=== PATIENT | male | born 1950 | race Caucasian/White ===

== ENCOUNTER → 2021-08-30 10:26 | Outpatient (BNVA) | payer MEDICARE, SELFPAY | PROVIDERS: Family Provider Family Medicine; Visit Provider Nurse Practitioner Family | DX: E11.9 Type 2 diabetes mellitus without complications (principal); Z85.46 Personal history of malignant neoplasm of prostate; I10 Essential (primary) hypertension | CPT/HCPCS: 80053; 80061; 83036; 84153; 84443 ==

== ENCOUNTER 2021-09-28 17:39 | Emergency (ER) | payer MEDICARE, SELFPAY ==
[2021-09-28] VITALS (8 sets, daily range): BP systolic 139–207; BP diastolic 74–94; PULSE 64–91; RESP 15–18; TEMP 36.6–36.9; O2SAT 94–98; BMI 28.8
--- NOTE | 2021-09-28 18:01 | ECG_ITS ---
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 Measurements Intervals [place] Rate: 86 P: 64 ME: 190 QRS: 2 QRSD: 172 T: 139 QT: 440 QTc: 527 Interpretive Statements SINUS RHYTHM WITH OCCASIONAL VENTRICULAR PREMATURE COMPLEXES LEFT BUNDLE BRANCH BLOCK [120+ ms QRS DURATION, 80+ ms Q/S IN V1/V2, 85+ ms R IN I/aVL/V5/V6] Compared to ECG 03/04/2018 16:53:49 Ventricular premature complex(es) now present Electronically Signed On 09-29-2021 15:53:11 CDT by Dipak Corona M.D. [id number]
--- NOTE | 2021-09-28 18:04 | ED_ITS ---
HPI - Abdominal Pain General: Chief Complaint: Abdominal Pain Stated Complaint: ABD PAIN Time Seen by Provider: 09/28/21 17:47 Source: patient Mode of arrival: EMS Limitations: no limitations History of Present Illness: This patient comes to emergency department via EMS from his home. Patient states that approximately 5 AM today he is had nausea and distention and felt like he could not eat. He states he has had a very small bowel movement earlier today but not normal. He states has been urinating normally. He denies any known exposure to infectious disease. He states he was at [place] at [facility] there and was evaluated today and states they did not do anything for me . He does admit that they did a full evaluation to include imaging laboratories etc. and he states they told him to use mag citrate and Dulcolax. He has known history of coronary artery dise ase and had coronary artery bypass several years ago. He denies any ongoing chest pain. He states no one else is ill in his home. He did have COVID-19 in July but is recovered from that condition. He has not had any abdominal surgeries but did have a TUR for prostatic cancer. MD elicited complaint: abdominal pain Quality: fullness Associated Symptoms: Denies chills, diarrhea, dysuria, fever(s), hematochezia, melena, syncope and vomiting Review of Systems Const: Denies: fever(s), chills or body aches Eyes: Denies: change in vision ENMT: Denies: throat pain or odynophagia Card: Denies: chest pain, palpitations or syncope Resp: Denies: dyspnea, productive cough or non-productive cough GI: Denies: vomiting, dysphagia, diarrhea, hematochezia or melena : Denies: flank pain, difficulty urinating or dysuria Musc: Denies: neck pain, back pain, extremity pain or extremity swelling Skin/Breast: Denies: rash, pruritus or erythema Neuro: Denies: headache(s), numbness in extremities, weakness in extremities, vertigo, confusion or Slurred speech present Psych: Denies: anxiety or depression Endo: Denies: polyuria or polydipsia All/Imm: Denies: urticaria PFSH ED PFSH: Medical History History of prostate cancer Hypertension Family History Father Stroke Brother Stroke Sister Stroke Other Diabetes Social History Smoking and tobacco status: never smoked Physical Exam Narrative: EXAM NARRATIVE: Patient makes good eye contact. Speech is goal-directed. Appears to be in no acute distress Const: COMMON NORMALS: no acute distress and patient oriented x3 GENERAL APPEARANCE: comfortable NUTRITIONAL APPEARANCE: obese ORIENTATION/CONSCIOUSNESS: Yes awake HENMT: COMMON NORMALS: normocephalic, atraumatic, Normal nasal mucous membranes and turbinates present, moist oral mucous membranes and oropharynx normal HEAD & SCALP: normocephalic and atraumatic FACE & SINUS: normal facial exam NOSE: Normal nasal mucous membranes and turbinates present Eye: COMMON NORMALS: Equal, round and reactive pupils present, EOMs intact bilaterally and no scleral icterus PUPIL: Yes Equal, round and reactive pupils present Neck/C-Spine: COMMON NORMALS: full ROM, no lymphadenopathy, supple, no JVD and No carotid bruits Chest: COMMONS NORMALS: normal inspection of the chest and normal palpation of entire chest wall Resp: COMMON NORMALS: normal respiratory effort, No retractions, No use of accessory muscles and clear to auscultation bilaterally AUSCULTATION: clear to auscultation bilaterally Cardio: COMMON NORMALS: no JVD, regular rate, No murmurs present (Cardio) and Peripheral pulses 2+ throughout RATE: regular rate PERIPHERAL PULSES: Tamar pheral pulses 2+ throughout GI: INSPECTION: Yes abdominal distension and No Fluid wave present AUSCULTATION: Yes normoactive bowel sounds PALPATION: No Guarding due to palpation present (GI), No Rigid due to palpation and No Pulsatile mass present PERCUSSION: no fluid wave and tympanic to percussion : COMMON NORMALS: Yes no CVA tenderness BLADDER/KIDNEY EXAM: Yes no CVA tenderness Back/Pelvis: COMMON NORMALS: no CVA tenderness, thoracic and lumbar spine normal to inspection, no thoracic nor lumbar tenderness and thoraco-lumbar ROM normal Extremity: COMMON NORMALS: normal to inspection, full ROM, capillary refill normal, no calf tenderness and no pedal edema Neuro: COMMON NORMALS: patient oriented x3, moves all extremities and no sensory deficits noted Course ED course: Records from from [place] are reviewed. All studies there unremarkable. Notable is the patient's initial troponin is elevated. We will go ahead and give the patient aspirin and follow this biomarker. His initial EKGs are nonischemic. Reevaluation(s): Reevaluation #1: Patient blood pressure is improved after nitroglycerin however he is still having some upper abdominal discomfort. Rectal examination was performed and rectal vault was clear of any stool masses etc. We will provide him additional analgesics and get a gallbladder ultrasound established there is no biliary tract disease although his CT scan was quiet on this area. We will also await his second troponin as I am a bit concerned he may be occult ACS given his known CAD. Reevaluation #2: diamond powder technician gave me informal report that gallbladder looked grossly normal without any obvious stones or wall thickening although she did not get great vie ws of his common bile duct or neck of the gallbladder. Time: 21:30 Consultations: Consultation #1: Discussed history and current findings with Dr Basilio who agreed to place in obs for further eval Time: 22:05 Vital Signs: Vital signs: Vital Signs Temperature 98.4 F 09/28/21 21:44 Pulse Rate 64 09/28/21 21:44 Respiratory Rate 16 09/28/21 21:44 Blood Pressure 139/74 09/28/21 21:44 Pulse Oximetry 95 09/28/21 21:44 MDM - Abdominal Pain Medical Decision Making Patient with known coronary artery disease history with up proximately 18+ hours of pain. Previous evaluation at another emergency department did not find anything worrisome other than retained stool the patient proceeded to make his way to our emergency department. Our evaluation here this evening reveals an unchanged EKG over serial evaluations with a stable left bundle branch block pattern. He does have troponin elevations but the second troponin elevation is not significantly different however I think because of his history certainly further observation and repeat troponins are indicated. Again his CT scan from [place] was negative for any obvious serious pathology at this time. Our gallbladder ultrasound at this time does not show any obvious occult biliary tract disease. The patient is amenable to placing in observation for further evaluation. Medical Records I reviewed the patient's medical records. Reviewed records from [facility]. Evaluation at that facility was fairly unremarkable. Other than a slightly elevated glucose and elevated BUN/creatinine ratio laboratories were unremarkable. CT of abdomen and pelvis revealed some increased stool burden but no intra-abdominal pathologic pathology including no evidence of great vessel disease etc. Lab Data I reviewed the patient's lab results. : 09/28/21 18:05 09/28/21 18:05 Labs/Radiology: Radiology Impressions Chest X-Ray 09/28/21 19:47 IMPRESSION: Mild atelectasis at the bilateral lung bases. No consolidative pulmonary infiltrate noted. Gallbladder Ultrasound 09/28/21 20:26 IMPRESSION: 1. The study is limited by patient body habitus. 2. No abnormality demonstrated. Laboratory Results WBC 7.1 10^3/uL (4.0-10.0) 09/28/21 18:05 RBC 4.80 10^6/uL (4.1-5.3) 09/28/21 18:05 Hgb 13.5 g/dL (11.7-16.6) 09/28/21 18:05 Hct 40.9 % (42.0-52.0) L 09/28/21 18:05 MCV 85.2 fl (80-94) 09/28/21 18:05 MCH 28.1 pg (28.0-34.0) 09/28/21 18:05 MCHC 33.0 g/dL (30.0-36.0) 09/28/21 18:05 RDW 13.9 % (12.1-15.1) 09/28/21 18:05 Plt Count 216 10^3/cmm (130-400) 09/28/21 18:05 MPV 9.8 fL (7.4-10.4) 09/28/21 18:05 Neut % (Auto) 74.1 % 09/28/21 18:05 Lymph % (Auto) 18.0 % 09/28/21 18:05 Bibb % (Auto) 6.4 % 09/28/21 18:05 Eos % (Auto) 1.0 % 09/28/21 18:05 Baso % (Auto) 0.4 % 09/28/21 18:05 Neut # (Auto) 5.23 10^3/uL (1.8-7.7) 09/28/21 18:05 Lymph # (Auto) 1.3 10^3/uL (0.8-4.8) 09/28/21 18:05 Bibb # (Auto) 0.5 10^3/uL (0.2-0.9) 09/28/21 18:05 Eos # (Auto) 0.1 10^3/uL (0.0-0.8) 09/28/21 18:05 Baso # (Auto) 0.0 10^3/uL (0.0-0.1) 09/28/21 18:05 Nucleated RBC % (auto) 0 % 09/28/21 18:05 Nucleated RBCs # 0.0 /100WBC 09/28/21 18:05 Sodium 136 mmol/L (136-145) 09/28/21 18:05 Potassium 4.7 mmol/L (3.5-5.1) 09/28/21 18:05 Chloride 99 mmol/L (98-107) 09/28/21 18:05 Carbon Dioxide 25 mmol/L (22-29) 09/28/21 18:05 Anion Gap 16.7 (5-19) 09/28/21 18:05 BUN 19 mg/dL (8-23) 09/28/21 18:05 Creatinine 1.2 mg/dL (0.7-1.2) 09/28/21 18:05 GFR Calculation Not Reportable 09/28/21 18:05 Glucose 284 mg/dL (65-115) H 09/28/21 18:05 Calculated Osmolality 295 mOsm/kg (285-295) 09/28/21 18:05 Calcium 9.6 mg/dL (8.5-10.5) 09/28/21 18:05 Total Bilirubin 0.6 mg/dL (0.15-1.2) 09/28/21 18:05 AST 19 U/L (0-40) 09/28/21 18:05 ALT 20 U/L (0-41) 09/28/21 18:05 Alkaline Phosphatase 149 IU/L (40-130) H 09/28/21 18:05 Troponin T Gen 5 ng/L 39 ng/L (0-15) H 09/28/21 18:05 Troponin T 120 Minute 39.84 ng/L (0-15) H 09/28/21 20:23 Delta Troponin T 0.84 ABS# (0-10) 09/28/21 20:23 Total Protein 7.8 g/dL (6.6-8.7) 09/28/21 18:05 Albumin 3.8 g/dL (3.5-5.2) 09/28/21 18:05 Globulin 4.0 g/dL (1.3-4.6) 09/28/21 18:05 Lipase 18 U/L (13-60) 09/28/21 18:05 Urine Color Yellow (Yellow) 09/28/21 18:45 Urine Appearance Clear (CLEAR) 09/28/21 18:45 Urine pH 6.5 (5-7) 09/28/21 18:45 Ur Specific [place] 1.010 (1.005-1.030) 09/28/21 18:45 Urine Protein 3+ (Negative) H 09/28/21 18:45 Urine Glucose (UA) 4+ (Normal) H 09/28/21 18:45 Urine Ketones 1+ (Negative) H 09/28/21 18:45 Urine Blood 2+ (Negative) H 09/28/21 18:45 Urine Nitrate Negative (Negative) 09/28/21 18:45 Urine Bilirubin Neg (Negative) 09/28/21 18:45 Urine Urobilinogen Norm mg/dL (Negative) 09/28/21 18:45 Ur Leukocyte Esterase Negative (Negative) 09/28/21 18:45 Urine RBC 5-10 /hpf (0-2) H 09/28/21 18:45 Urine WBC 0-4 /hpf (0-5) H 09/28/21 18:45 Ur Squamous Epith Cells 0-4 /hpf (0-5) H 09/28/21 18:45 Amorphous Sediment Not Reportable 09/28/21 18:45 Urine Bacteria Trace /hpf (NONE) 09/28/21 18:45 Urine Mucus Trace /hpf 09/28/21 18:45 EKG Data EKG 1: EKG interpretation time: 18:18 Interpretation: Patient has a sinus rhythm of 86 bpm. There are occasional unifocal PVCs noted. He has a left bundle branch block pattern. No discordant or concordant ST segment changes consistent with scar boluses or modify sclerosis syndrome are seen. No prior tracing available for review. EKG 2: EKG interpretation time: 19:21 Interpretation: Patient rate is 88 bpm. He has baseline left bundle branch block pattern with no criteria for acute STEMI by modified Margo's criteria. Discharge Plan Discharge Patient Disposition: Placed in Observation Clinical Impression: Abdominal pain, Elevated troponin, Coronary artery disease Coding Level of Care Code ED Supervisor Hard Candy for Chg Fwd Exam Comprehensive
[2021-09-28 18:17] LABS: Basophils % 0.4 %; Eosinophils # 0.1 10^3/uL (0.0-0.8); Hematocrit 40.9 % (42.0-52.0); Hemoglobin 13.5 g/dL (11.7-16.6); Lymphocytes # 1.3 10^3/uL (0.8-4.8); Mean Corpuscular Hemoglobin 28.1 pg (28.0-34.0); Mean Corpuscular Volume 85.2 fl (80-94); Mean Platelet Volume 9.8 fL (7.4-10.4); Monocytes # 0.5 10^3/uL (0.2-0.9); Monocytes % 6.4 %; Neutrophils # 5.23 10^3/uL (1.8-7.7); Neutrophils % 74.1 %; Nucleated Red Blood Cells % 0 %; Platelet Count 216 10^3/cmm (130-400); Red Cell Distribution Width 13.9 % (12.1-15.1); White Blood Count 7.1 10^3/uL (4.0-10.0)
[2021-09-28] MEDS: ondansetron 2 mg/ML SDV 2 mL 4 MG IVP (18:39)
[2021-09-28 18:43] LABS: Alanine Aminotransferase 20 U/L (0-41); Albumin Level 3.8 g/dL (3.5-5.2); Alkaline Phosphatase 149 IU/L (40-130); Anion Gap 16.7 (5-19); Aspartate Amino Transferase 19 U/L (0-40); Blood Urea Nitrogen 19 mg/dL (8-23); Calcium 9.6 mg/dL (8.5-10.5); Carbon Dioxide 25 mmol/L (22-29); Chloride 99 mmol/L (98-107); Glucose 284 mg/dL (65-115); Lipase 18 U/L (13-60); Osmolality Calculated 295 mOsm/kg (285-295); Potassium 4.7 mmol/L (3.5-5.1); Sodium 136 mmol/L (136-145); Total Bilirubin 0.6 mg/dL (0.15-1.2); Total Protein 7.8 g/dL (6.6-8.7); Troponin T (5th) Once 39 ng/L (0-15)
[2021-09-28 18:59] LABS: Add Urine Microscopic? YES; Bilirubin Urine Neg (Negative); Blood Urine 2+ (Negative); Glucose Urine UA 4+ (Normal); Ketones Urine 1+ (Negative); Leukocyte Esterase Urine Negative (Negative); Nitrate Urine Negative (Negative); Protein Urine 3+ (Negative); Urine Appearance Clear (CLEAR); Urine Color Yellow (Yellow); Urobilinogen Urine Norm (Negative); pH Urine 6.5 (5-7)
[2021-09-28 19:00] LABS: Add Urine Culture? No; Bacteria Urine TRACE /hpf; Mucus Urine TRACE /hpf; Squamous Epithelial Cell Urine 0-4 /hpf (0-5); WBC Urine 0-4 /hpf (0-5)
[2021-09-28] MEDS: aspirin 325 mg EC Tablet PO (19:43)
[2021-09-28] MEDS: nitroglycerin 0.4 mg sublingual Tablet SUBLINGUAL (19:43)
--- NOTE | 2021-09-28 19:47 | XRR_ITS ---
PROCEDURE INFORMATION: Exam: XR Chest Exam date and time: 09/28/2021 7:47 PM Age: 71 years old Clinical indication: Sternal or substernal pain; Prior surgery; Surgery type: Open heart; Additional info: Chest pain TECHNIQUE: Imaging protocol: XR of the chest. Views: 1 view. COMPARISON: CR Chest 1 [place] [id number] 03/04/2018 1:09 PM FINDINGS: Lungs: Mild atelectasis at the lung bases. 5 mm calcified granuloma right upper lobe. No consolidative pulmonary infiltrate noted. Pleural spaces: No pleural effusion. No pneumothorax. Heart/Mediastinum: No cardiomegaly. Bones/joints: Median sternotomy noted. XR/XR chest 1V portable [id number] IMPRESSION: Mild atelectasis at the bilateral lung bases. No consolidative pulmonary infiltrate noted.
[2021-09-28] MEDS: morphine 4 mg/mL SDV 1 mL IVP ×2 (19:51→20:43)
--- NOTE | 2021-09-28 20:26 | USR_ITS ---
PROCEDURE INFORMATION: Exam: US Abdomen, Limited; Right Upper Quadrant Exam date and time: 09/28/2021 8:26 PM Age: 71 years old Clinical indication: Abdominal pain; Generalized; Additional info: Upper abdominal pain-neg CT at [place] home TECHNIQUE: Imaging protocol: US abdomen. Real time ultrasound with image documentation. Limited exam focused on the right upper quadrant. COMPARISON: CT abdomen pelvis wo con [id number] 03/04/2018 2:46 PM FINDINGS: Limitations: The study is limited by patient body habitus. Liver: Visualized portion of the liver is unremarkable. Gallbladder: No gallstones demonstrated in the gallbladder. No gallbladder wall thickening noted. Common bile duct: Common duct is not visualized. Pancreas: Pancreas is not seen, secondary to body habitus. Right kidney: Right kidney is unremarkable as demonstrated. Inferior vena cava: The visualized portion of the IVC is unremarkable. US/US gall bladder [id number] IMPRESSION: 1. The study is limited by patient body habitus. 2. No abnormality demonstrated.
[2021-09-28 20:48] LABS: Troponin 5 2HR 39.84 ng/L (0-15)
[2021-09-28 20:51] LABS: Troponin 5 2HR Delta 0.84 ABS# (0-10)
--- NOTE | 2021-09-28 21:04 | ECG_ITS ---
[facility] Test Date: 2021-09-28 Pat Name: Charlie Ferrell Department: Room: Gender: Male Electroformer: : 1950 Requested By: Mega eHnley Order Number: [id number] Angela MD: Dipak Corona M.D. Measurements Intervals [place] Rate: 88 P: 61 IA: 174 QRS: 8 QRSD: 172 T: 128 QT: 426 QTc: 518 Interpretive Statements SINUS RHYTHM LEFT BUNDLE BRANCH BLOCK [120+ ms QRS DURATION, 80+ ms Q/S IN V1/V2, 85+ ms R IN I/aVL/V5/V6] Compared to ECG 09/28/2021 18:12:49 Ventricular premature complex(es) no longer present Electronically Signed On 09-29-2021 15:53:06 CDT by Dipak Corona M.D. [id number]
[2021-09-28] MEDS: metoclopramide 5 mg/mL SDV 2 mL IVP (21:44)
--- NOTE | 2021-09-29 00:20 | PM.MISC ---
Miscellaneous Note Purpose of Documentation: patient left AMA from ER prior to hospitalist evaluation.
--- NOTE | 2021-09-29 01:04 | ECG_ITS ---
[facility] Test Date: 2021-09-28 Pat Name: Charlie Ferrell Department: Room: 103 Gender: Male Liquefaction Supervisor: : 1950 Requested By: Mega Henley Order Number: [id number] Angela MD: Dipak Corona M.D. Measurements Intervals [place] Rate: 84 P: 48 [place]: 169 QRS: -16 QRSD: 177 T: 109 QT: 428 QTc: 509 Interpretive Statements SINUS RHYTHM WITH OCCASIONAL SUPRAVENTRICULAR PREMATURE COMPLEXES LEFT BUNDLE BRANCH BLOCK [120+ ms QRS DURATION, 80+ ms Q/S IN V1/V2, 85+ ms R IN I/aVL/V5/V6] Compared to ECG 09/28/2021 19:16:35 No significant changes Electronically Signed On 09-29-2021 15:52:55 CDT by Dipak Corona M.D. [id number]
[2021-09-29 18:38] LABS: Glucose Point of Care 247 mg/dL (70-110)
== END 2021-09-28 23:45 | disposition still patient (30) ==
LOC: ER 22:17 → CSU 23:36
PROVIDERS: Emergency Provider Emergency Medicine; Visit Provider Student in an Organized Health Care Education/Training Program
DX: R10.9 Unspecified abdominal pain (principal); R77.8 Other specified abnormalities of plasma proteins; I25.10 Atherosclerotic heart disease of native coronary artery without angina pectoris; I10 Essential (primary) hypertension; Z85.46 Personal history of malignant neoplasm of prostate
CPT/HCPCS: 36416; 71045; 76705; 80053; 81001; 82962; 83690; 84484; 85025; 93005; 99284; G0378; J2270; J2405; J2765

== ENCOUNTER 2021-10-28 05:30 | Day surgery (SDC) | payer MEDICARE, SELFPAY ==
[2021-10-24 11:00] VITALS: BMI 28.0
[2021-10-28 06:20] VITALS: BP 189/82; PULSE 66; RESP 18; TEMP 36.1; O2SAT 99
[2021-10-28] MEDS: sodium chloride 0.9% 1,000 ML 30 ML IV (06:24)
--- NOTE | 2021-10-28 06:50 | P.ANESASSM_ITS ---
Pre-Anesthetic Assessment Height/Weight: Height 1.68 m Weight 78.925 kg Temp Pulse Resp BP Pulse Ox 97.0 F L 66 18 189/82 99 10/28/21 06:20 10/28/21 06:20 10/28/21 06:20 10/28/21 06:20 10/28/21 06:20 Preop Diagnosis: history of polyps Operation Date: 10/28/21 07:30 Proposed Procedures p Colonoscopy g0105/z86.010(Not Applicable) - Ousmane North MD Familial anesthetic complications: none Was Beta Maddison taken within 24 hours: N/A (not taken) Was Clonidine taken within 24 hours: N/A Last intake: Intake Last Liquid Date 10/27/21 Last Liquid Time 23:00 Last Solid Date 10/26/21 Last Solid Time 16:30 Social No alcohol and No tobacco quit smoking after PA/CABG Exam alert and oriented x 3 Airway Submandibular: within normal limits Cervical ROM: within normal limits Mallampati: Class III Dentition: false Pulmonary None reported CV/HEM Coronary Artery Disease (CABGx4 6 years ago), Hypertension and Myocardial Infar ction (prior to CABG) None reported Hepatic None reported GI Gastroesophageal Reflux Disease Metabolic Diabetes Mellitus prostate cancer in 2010-treated with surgery only Musc/methodist jennie edmundson Lower Back Pain Neuropsych Cerebrovascular Accident (about 8 years ago, trouble swallowing sometimes ) Anesthetic Plan ASA status: 3 Anesthesia: Anesthesia Evaluation and MAC Risk of > 500 ml blood loss (7ml/kg in children): No Medications/Allergies Home Medications Medication Instructions Recorded Confirmed Last Taken Type atorvastatin 40 mg tablet 40 mg PO DAILY 08/30/21 10/28/21 10/27/21 History cholecalciferol (vitamin D3) 250 250 mcg PO DAILY 08/30/21 10/28/21 10/27/21 History mcg (10,000 unit) capsule sacubitril 24 mg-valsartan 26 mg 1 tab PO BID #60 tab 09/16/21 10/28/21 10/27/21 Rx tablet (Entresto) ondansetron 8 mg disintegrating 8 mg PO Q8H PRN #20 tab 09/30/21 10/28/21 10/27/21 Rx tablet insulin lispro 100 unit/mL See Rx Instructions SUBCUT TID ml 10/02/21 10/28/21 10/27/21 History subcutaneous pen (Humalog KwikPen (U-100) Insulin) carvedilol 6.25 mg tablet 6.25 mg PO BID #180 tab 10/10/21 10/28/21 10/27/21 Rx gabapentin 300 mg capsule See Rx Instructions PO .COMPLEX 10/10/21 10/28/21 10/27/21 Rx #270 cap insulin detemir U-100 100 unit/mL 20 unit SUBCUT DAILY ml 10/10/21 10/28/21 10/27/21 History (3 mL) subcutaneous pen (Levemir FlexTouch U-100 Insulin) Allergies Allergy/AdvReac Type Severity Reaction Status Date / Time No Known Allergies Allergy Verified 10/28/21 06:17 Current Medications Generic Name Dose Route Start Last Admin Trade Name Freq PRN Reason Stop Dose Admin Sodium Chloride 1,000 mls @ 30 mls/hr 10/28/21 06:00 10/28/21 06:24 Sodium Chloride 0.9% IV 10/29/21 05:59 30 mls/hr .Q24H ALEXANDRU Administration PFSH Anesthesia Medical History History of prostate cancer Hypertension Family History Father Stroke Brother Stroke Sister Stroke Other Diabetes Social History Smoking and tobacco status: former smoker Data Anesthesia Cardiac Studies: No Data to Display
--- NOTE | 2021-10-28 07:28 | P.HP_ITS ---
Same Day Surgery H&P Indication for Procedure/HPI DATE OF PROCEDURE: October 28, 2021 CHIEF COMPLAINT/INDICATIONFOR SURGICAL PROCEDURE: Personal history of colon polyps PREOP DIAGNOSIS: history of polyps PLANNED PROCEDURE: Operation Date: 10/28/21 07:30 Proposed Procedures p Colonoscopy g0105/z86.010(Not Applicable) - Ousmane North MD Medications/Allergies* Home Medications Medication Instructions Recorded Confirmed Type atorvastatin 40 mg tablet 40 mg PO DAILY 08/30/21 10/28/21 History cholecalciferol (vitamin D3) 250 250 mcg PO DAILY 08/30/21 10/28/21 History mcg (10,000 unit) capsule insulin lispro 100 unit/mL See Rx Instructions SUBCUT TID ml 10/02/21 10/28/21 History subcutaneous pen (Humalog KwikPen (U-100) Insulin) insulin detemir U-100 100 unit/mL 20 unit SUBCUT DAILY ml 10/10/21 10/28/21 History (3 mL) subcutaneous pen (Levemir FlexTouch U-100 Insulin) Allergies/Adverse Reactions Allergy/AdvReac Type Severity Reaction Status Date / Time No Known Allergies Allergy Verified 10/28/21 06:17 Current Medications: Generic Name Dose Route Start Last Admin Trade Name Freq PRN Reason Stop Dose Admin Sodium Chloride 1,000 mls @ 30 mls/hr 10/28/21 06:00 10/28/21 06:24 Sodium Chloride 0.9% IV 10/29/21 05:59 30 mls/hr .Q24H ALEXANDRU Administration Pertinent History/Comorbid Conditions* Medical History (Updated 10/15/21 @ 14:53 by Ousmane North MD) History of prostate cancer Hypertension Family History (Updated 08/30/21 @ 09:40 by Trudi Bush LPN) Diabetes Stroke Father Brother Sister Social History Smoking and tobacco status: former smoker Pertinent Exam Findings alert, oriented x 3, clear to auscultation bilaterally, regular rate & rhythm, operative site marked and procedure specific exam findings Recommendations Surgery/Procedure today Coding Level of Care Code Acute Daycare Provider for Odalis Hanks
[2021-10-28 08:19] VITALS: BP 128/62; PULSE 73; RESP 15; TEMP 36.1; O2SAT 92
--- NOTE | 2021-10-28 08:19 | ANE.PACU2 ---
Inpatient post-anesthesia follow up: Airway intact: Yes Vital signs: Temperature 97.0 F Pulse Rate 66 Respiratory Rate 18 Blood Pressure 189/82 Pulse Oximetry 99 Oxygen Delivery Me thod Room Air Oxygen Flow Rate Fraction of Inspir ed Oxygen Hydration adequate: Yes Nausea and vomiting: No Pain level: 1 Mental status: Baseline
[2021-10-28 08:30] VITALS: BP 136/60; PULSE 64; RESP 18; O2SAT 96
== END 2021-10-28 08:40 | disposition home or self-care (01) ==
PROVIDERS: Visit Provider Internal Medicine
PROC: 0DJD8ZZ Inspection of Lower Intestinal Tract, Via Natural or Artificial Opening Endoscopic (ICD-10-PCS; CPT 45378; principal; 2021-10-28 07:30)
DX: D12.4 Benign neoplasm of descending colon (principal); D12.3 Benign neoplasm of transverse colon; Z86.010 Personal history of colon polyps; Z87.891 Personal history of nicotine dependence; Z95.1 Presence of aortocoronary bypass graft; I10 Essential (primary) hypertension; I25.2 Old myocardial infarction; K21.9 Gastro-esophageal reflux disease without esophagitis; I25.10 Atherosclerotic heart disease of native coronary artery without angina pectoris; E11.9 Type 2 diabetes mellitus without complications; Z85.46 Personal history of malignant neoplasm of prostate; Z79.4 Long term (current) use of insulin; Z82.3 Family history of stroke; Z83.3 Family history of diabetes mellitus
CPT/HCPCS: 45385; 88305; J2704; J7030

== ENCOUNTER → 2021-11-28 10:20 | Outpatient (BNVA) | payer MEDICARE, SELFPAY | PROVIDERS: Visit Provider Nurse Practitioner Family | DX: E11.9 Type 2 diabetes mellitus without complications (principal); Z87.19 Personal history of other diseases of the digestive system | CPT/HCPCS: 74018; 83036 ==

== ENCOUNTER → 2022-03-04 14:08 | Outpatient (BNVA) | payer MEDICARE, SELFPAY | PROVIDERS: Visit Provider Nurse Practitioner Family | DX: I10 Essential (primary) hypertension (principal); E11.9 Type 2 diabetes mellitus without complications; R04.2 Hemoptysis | CPT/HCPCS: 71046; 80053; 80061; 83036 ==

== ENCOUNTER → 2022-06-05 11:06 | Outpatient (BNVA) | payer MEDICARE, SELFPAY | PROVIDERS: Visit Provider Nurse Practitioner Family | DX: E11.9 Type 2 diabetes mellitus without complications (principal) | CPT/HCPCS: 83036 ==

== ENCOUNTER → 2022-09-05 14:52 | Outpatient (BNVA) | payer MEDICARE, SELFPAY | PROVIDERS: Visit Provider Nurse Practitioner Family | DX: I10 Essential (primary) hypertension (principal); E11.9 Type 2 diabetes mellitus without complications | CPT/HCPCS: 80053; 80061; 83036 ==

== ENCOUNTER → 2023-01-27 07:58 | Outpatient (BNVA) | payer MEDICARE, SELFPAY | PROVIDERS: PCP Nurse Practitioner Family; Referring Provider Family Medicine; Visit Provider Psychiatry & Neurology Neurology | DX: R42 Dizziness and giddiness (principal); R26.89 Other abnormalities of gait and mobility; Z95.1 Presence of aortocoronary bypass graft; R00.1 Bradycardia, unspecified; R53.1 Weakness; Z86.73 Personal history of transient ischemic attack (TIA), and cerebral infarction without residual deficits; I10 Essential (primary) hypertension; Z87.891 Personal history of nicotine dependence; E11.42 Type 2 diabetes mellitus with diabetic polyneuropathy; Z79.4 Long term (current) use of insulin; Z98.890 Other specified postprocedural states; Z91.81 History of falling | CPT/HCPCS: 99203 ==

== ENCOUNTER 2023-02-04 13:56 | Outpatient (CLI) | payer MEDICARE, SELFPAY ==
--- NOTE | 2023-02-04 14:45 | USCV_ITS ---
Charlie Ferrell Age: 72 Gender: M : 1950 Exam Date: 02/04/2023 14:34 Ordering Phys: Willy Nielson MD Technologist: Tom Marcelo [place] [facility] [place]: hx of cva Risk Factors: Previous Vascular Surgery: Right Brachial BP: / Left Brachial BP: / Right Left Velocity (cm/s) Spectral Plaque Velocity (cm/s) Spectral Plaque Syst/Diast Broadening Syst/Diast Broadening 88.20/ 15.40 Prox CCA 88.20 / 16.50 89.30/ 18.70 Mid CCA 95.90 / 16.50 95.90/ 20.90 Hetro Distal CCA 94.80 / 17.60 Hetro 110.30/20.90 Hetro Prox ICA 73.90 / 12.10 Hetro 115.80/30.90 Hetro Mid ICA 109.20/ 33.10 Hetro 118.00/27.60 Distal ICA 94.80 / 28.70 110.80 ECA 79.40 1.23 ICA/CCA 1.14 Antegrade Vertebral Antegrade 54.00/ 11.00 cm/s 57.50/ 14.00 cm/s Tri Subclavian Tri 134.0 186.4 0 0 CONCLUSIONS Right ICA stenosis <50%. Moderate atheromatous plaque right carotid bulb/ICA. Left ICA stenosis <50%. Moderate atheromatous plaque left carotid bulb/ICA. Normal antegrade Doppler flow noted in the right vertebral artery. Normal antegrade Doppler flow noted in the left vertebral artery. Raymond Graff MD (Electronically Signed) Final Date: 04 February 2023 17:14 S
== END 2023-02-04 13:57 | disposition home or self-care (01) ==
PROVIDERS: PCP Nurse Practitioner Family; Visit Provider Psychiatry & Neurology Neurology
DX: I63.9 Cerebral infarction, unspecified (principal); R26.89 Other abnormalities of gait and mobility
CPT/HCPCS: 93880

== ENCOUNTER 2023-02-18 08:24 | Outpatient (CLI) | payer MEDICARE, SELFPAY ==
--- NOTE | 2023-02-18 08:45 | MR_ITS ---
WS: [id number] MRI CERVICAL SPINE NONCONTRAST TECHNIQUE: Sagittal T1, T2 and STIR imaging. Axial T2, gradient, and fiesta imaging. CLINICAL INFORMATION: I63.9 - Cerebral infarction, unspecified COMPARISON: MRI 2018 FINDINGS: Straightening of the normal cervical lordosis. Cord signal is normal. Disc space narrowing worse at C 5-C6 and C6-C7. Cord signal is normal. Disc space narrowing at C3-C4 is progressed compared to previo us. Alignment is similar in appearance. C2-C3: Mild facet arthropathy. Mild bilateral bony foraminal narrowing RIGHT greater than LEFT. Spina l canal is patent. C3-C4: Disc osteophyte complex with endplate ridging. Moderate LEFT and mild RIGHT bony foraminal ame rowing. Moderate facet arthropathy. Spinal canal is patent. C4-C5: Mild disc bulging and osteophytic ridging. Moderate facet arthropathy. Mild to moderate RIGHT and mild LEFT bony foraminal narrowing. Moderate facet arthropathy. C5-C6: Disc osteophyte complex with endplate ridging. Moderate facet arthropathy. Mild RIGHT greater than LEFT LEFT foraminal narrowing. C6-C7: Mild LEFT and no significant RIGHT foraminal narrowing. Disc osteophyte complex with endplate ridging. Spinal canal is patent. C7-T1: Mild RIGHT and no significant LEFT foraminal narrowing. Spinal canal is patent. Visualized brain stem structures: Normal. Prevertebral soft tissues: Normal. MR/MR cervical spin wo con* [id number] IMPRESSION: 1. Straightening of the normal cervical lordosis. Disc space narrowing at C3-C 4 has progressed compared to previous. 2. No significant central canal stenosis. Cord signal is normal. 3. Mild to moderate bony foraminal narrowing worse at bilateral C3-C4, RIGHT C 4-C5, bilateral C5-C6, bilateral C6-C7. 4. Moderate facet arthropathy worse at C3-C4, C4-C5 worse on the RIGHT, and bi lateral C5-C6.
--- NOTE | 2023-02-18 09:30 | MR_ITS ---
WS: [id number] MRI LUMBAR SPINE NONCONTRAST TECHNIQUE: Sagittal T1, T2 and STIR imaging. Axial T1 and T2 imaging. CLINICAL INFORMATION: I63.9 - Cerebral infarction, unspecified COMPARISON: MRI 2018 FINDINGS: Grade 1 anterolisthesis L5 on S1 with chronic bilateral pars defects. Grade 1 anterolisthesis measure s 6.8 mm. L1-L2: Tiny RIGHT foraminal protrusion with mild RIGHT foraminal narrowing. Spinal canal and foramen are patent. Mild facet arthropathy. L2-L3: Mild disc bulging with mild facet arthropathy. Slight effacement of ventral thecal sac. Small bilateral foraminal protrusions with mild bilateral foraminal narrowing RIGHT greater than LEFT. L3-L4: Mild disc bulging and osteophytic ridging. Narrowing of the subarticular recess bilaterally LE FT greater than RIGHT. Mild central canal stenosis. Mild bilateral foraminal narrowing. Moderate face t arthropathy. L4-L5: Mild disc bulging with slight effacement of ventral thecal sac. Narrowing of the subarticular recess bilaterally. Moderate facet arthropathy. Small facet effusions. RIGHT foraminal protrusion wit h moderate RIGHT foraminal narrowing. LEFT foramen is patent. Impingement traversing L5 nerve roots bilaterally. L5-S1: Grade 1 anterolisthesis L5 on S1 with bilateral pars defects. Grade 1 anterolisthesis appears stable compared to 2018. Moderate central canal stenosis with impingement traversing RIGHT greater th an LEFT S1 nerve roots. Moderate to advanced facet arthropathy. Moderate to severe RIGHT and mild LEF T bony foraminal narrowing. LEFT renal cyst measuring 3.8 cm. Visualized pelvic bony structures: Normal. Paravertebral soft tissues: Normal. MR/MR lumbar spine wo con* [id number] IMPRESSION: 1. Grade 1 anterolisthesis L5 on S1 measuring 6.8 mm appears stable compared t o previous. Moderate central canal stenosis at this level has progressed with i mpingement traversing RIGHT greater than LEFT S1 nerve roots. Chronic spondylol ysis at this level. Severe RIGHT foraminal narrowing impinges the exiting L5 ne rve root. 2. Mild central canal stenosis L3-L4 and L4-L5 with narrowing of the subarticu lar recess bilaterally. This is progressed slightly at these levels compared to previous. 3. Mild to moderate bilateral L3-L4 foraminal narrowing. Moderate RIGHT L4-L5 foraminal narrowing. Severe RIGHT and moderate LEFT L5-S1 foraminal narrowing.
== END 2023-02-18 08:25 | disposition home or self-care (01) ==
PROVIDERS: PCP Nurse Practitioner Family; Visit Provider Psychiatry & Neurology Neurology
DX: I63.9 Cerebral infarction, unspecified (principal); R26.89 Other abnormalities of gait and mobility; M47.812 Spondylosis without myelopathy or radiculopathy, cervical region; M48.02 Spinal stenosis, cervical region; M47.816 Spondylosis without myelopathy or radiculopathy, lumbar region; M48.061 Spinal stenosis, lumbar region without neurogenic claudication
CPT/HCPCS: 72141; 72148

== ENCOUNTER → 2023-03-02 13:37 | Outpatient (BNVA) | payer MEDICARE, SELFPAY | PROVIDERS: PCP Nurse Practitioner Family; Visit Provider Internal Medicine | DX: I44.7 Left bundle-branch block, unspecified (principal); R07.9 Chest pain, unspecified; I25.10 Atherosclerotic heart disease of native coronary artery without angina pectoris; I10 Essential (primary) hypertension; E11.9 Type 2 diabetes mellitus without complications | CPT/HCPCS: 36415; 80048; 83880; 85025; 93005; 99204 ==

== ENCOUNTER → 2023-03-03 08:13 | Outpatient (BNVA) | payer MEDICARE, SELFPAY | PROVIDERS: PCP Nurse Practitioner Family; Referring Provider Psychiatry & Neurology Neurology; Visit Provider Physician Assistant | DX: M47.812 Spondylosis without myelopathy or radiculopathy, cervical region; M43.17 Spondylolisthesis, lumbosacral region; M47.817 Spondylosis without myelopathy or radiculopathy, lumbosacral region; R53.1 Weakness | CPT/HCPCS: 72050; 72110; 99204 ==

== ENCOUNTER 2023-03-18 12:47 | Outpatient (CLI) | payer MEDICARE, MEDICAID, SELFPAY ==
--- NOTE | 2023-03-18 13:00 | USCV_ITS ---
Charlie Ferrell Age: 73 Gender: M : 1950 Exam Date: 03/18/2023 12:58 Ordering Phys: Dipak Corona M.D ([email or web address]) Technologist: Marija Henao [place]am [place] [facility] [place]: SOB BP: / HR: 53 Rhythm: Sinus Technical Quality: Adequate MEASUREMENTS (Male / Female) Normal Values 2D ECHO LV Diastolic Diameter PLAX 4.6 cm 4.2 - 5.9 / 3.9 - 5.3 cm LV Systolic Diameter PLAX 3.0 cm LV Chamber Size 4.6 cm IVS Diastolic Thickness 1.1 cm 0.6 - 1.0 / 0.6 - 0.9 cm IVS Systolic Thickness 1.5 cm LVPW Diastolic Thickness 1.0 cm 0.6 - 1.0 / 0.6 - 0.9 cm LVPW Systolic Thickness 1.5 cm RV Chamber Size 3.0 cm LVOT Diameter 2.1 cm LV Ejection Fraction 2D Teich 65.0 % LV Ejection Fraction MOD 2C 58.0 % LV Ejection Fraction 2C AL 56.2 % LA Diameter 5.1 cm LA Width 4.2 cm LA Height 3.4 cm RA Width 3.2 cm RA Height 4.2 cm Aorta at Sinotubular Diameter 2.9 cm IVC Diameter 1.4 cm M-MODE Aortic Annulus Diameter 3.2 cm LA Ao Ratio MM 1.7 MV E Point Septal Separation 0.6 cm DOPPLER AV Peak Velocity 110.0 cm/s LVOT Peak Velocity 76.0 cm/s AV Area Cont Eq vti 2.2 cm squared AV Area Cont Eq pk 2.3 cm squared MV Area PHT 2.7 cm squared Mitral E to A Ratio 1.4 MV E' Velocity 62.5 cm/s Mitral E to MV E' Ratio 24.3 Mitral E to LV E' Lateral Ratio 18.3 Mitral E to LV E' Septal Ratio 36.1 TR Peak Velocity 275.6 cm/s TR Peak Gradient 30.4 mmHg TR Mean Velocity 212.4 cm/s TR Mean Gradient 20.2 mmHg TR Velocity Time Integral 106.4 cm TV Peak E Velocity 77.0 cm/s Right Atrial Pressure 3.0 mmHg Pulmonary Artery Systolic Pressu 33.4 mmHg RV Acceleration Time 0.1 s RV Ejection Time 0.3 s RV AcT/ET 0.4 FINDINGS Left Ventricle Left ventricle normal size. LV systolic function is mildly reduced with EF of 45 to 50%. Mild global hypokinesis. Right Ventricle RV is moderately hypokinetic. Right Atrium Normal in size Left Atrium Dilated Mitral Valve Moderate mitral valve calcification seen. Mild to moderate mitral regurgitation Aortic Valve Aortic valve is thickened. No significant stenosis or regurgitation. Tricuspid Valve Mild tricuspid regurgitation. RVSP is normal Pulmonic Valve Not well visualized Pericardium Normal Aorta Normal in size IVC Appears to be normal CONCLUSIONS LV systolic function is mildly reduced with EF of 45 to 50% RV is moderately hypokinetic Left atrial dilation Mild to moderate mitral regurgitation Mild tricuspid regurgitation. Compared to prior echocardiogram from 2018, RV is moderately hypokinetic Dipak Corona MD (Electronically Signed) Final Date: 01 April 2023 18:07 S
== END 2023-03-18 12:48 | disposition home or self-care (01) ==
PROVIDERS: PCP Nurse Practitioner Family; Visit Provider Internal Medicine
DX: R06.09 Other forms of dyspnea (principal); I34.0 Nonrheumatic mitral (valve) insufficiency; I07.1 Rheumatic tricuspid insufficiency
CPT/HCPCS: 93306

== ENCOUNTER → 2023-04-09 11:09 | Outpatient (BNVA) | payer MEDICARE, MEDICAID, SELFPAY | PROVIDERS: PCP Internal Medicine; Visit Provider Psychiatry & Neurology Neurology | DX: R26.9 Unspecified abnormalities of gait and mobility (principal); R42 Dizziness and giddiness; R53.1 Weakness; M43.17 Spondylolisthesis, lumbosacral region; E55.9 Vitamin D deficiency, unspecified; I65.23 Occlusion and stenosis of bilateral carotid arteries; Z87.891 Personal history of nicotine dependence; Z79.4 Long term (current) use of insulin; I10 Essential (primary) hypertension; E11.42 Type 2 diabetes mellitus with diabetic polyneuropathy | CPT/HCPCS: 36415; 82306; 82607; 82746; 83036; 83735; 83921; 84155; 84165; 84439; 84443; 84481; 85651; 86140; 86160; 86162; 86235; 86255; 86334; 86376; 86431; 86617; 86780; 99212 ==

== ENCOUNTER → 2023-04-13 09:46 | Outpatient (BNVA) | payer MEDICARE, MEDICAID, SELFPAY | PROVIDERS: PCP Internal Medicine; Visit Provider Anesthesiology Pain Medicine | DX: G62.9 Polyneuropathy, unspecified; M43.17 Spondylolisthesis, lumbosacral region; M47.22 Other spondylosis with radiculopathy, cervical region | CPT/HCPCS: 99205 ==

== ENCOUNTER 2023-05-04 06:00 | Outpatient (RCR) | payer MEDICARE, MEDICAID, SELFPAY | END 2023-05-19 23:59 | disposition home or self-care (01) | LOC: GPT 06:00 | PROVIDERS: PCP Internal Medicine; Visit Provider Psychiatry & Neurology Neurology | DX: R26.9 Unspecified abnormalities of gait and mobility (principal); R53.1 Weakness; R42 Dizziness and giddiness | CPT/HCPCS: 97110; 97112; 97163 ==

== ENCOUNTER 2023-05-20 06:00 | Outpatient (RCR) | payer MEDICARE, MEDICAID, SELFPAY | END 2023-06-18 23:59 | disposition home or self-care (01) | LOC: GPT 06:00 | PROVIDERS: PCP Internal Medicine; Visit Provider Psychiatry & Neurology Neurology | DX: R26.9 Unspecified abnormalities of gait and mobility (principal); R53.1 Weakness; R42 Dizziness and giddiness | CPT/HCPCS: 97110; 97112; 97140; 97530 ==

== ENCOUNTER 2023-06-19 06:00 | Outpatient (RCR) | payer MEDICARE, MEDICAID, SELFPAY | END 2023-07-19 23:59 | disposition home or self-care (01) | LOC: GPT 06:00 | PROVIDERS: PCP Internal Medicine; Visit Provider Psychiatry & Neurology Neurology | DX: R26.9 Unspecified abnormalities of gait and mobility (principal); R53.1 Weakness; R42 Dizziness and giddiness | CPT/HCPCS: 97110; 97140 ==

== ENCOUNTER 2023-07-06 06:00 | Outpatient (RCR) | payer MEDICARE, MEDICAID, SELFPAY | END 2023-07-19 23:59 | disposition home or self-care (01) | LOC: GPT 06:00 | PROVIDERS: PCP Internal Medicine; Visit Provider Internal Medicine | DX: M54.2 Cervicalgia (principal) | CPT/HCPCS: 97110; 97140; 97161 ==

== ENCOUNTER → 2023-07-21 09:57 | Outpatient (BNVA) | payer MEDICARE, MEDICAID, SELFPAY | PROVIDERS: PCP Internal Medicine; Visit Provider Nurse Practitioner Family | DX: Z79.899 Other long term (current) drug therapy (principal); E11.9 Type 2 diabetes mellitus without complications; I50.9 Heart failure, unspecified; I10 Essential (primary) hypertension | CPT/HCPCS: 80053; 83036 ==

== ENCOUNTER → 2023-09-07 14:54 | Outpatient (BNVA) | payer MEDICARE, SELFPAY | PROVIDERS: PCP Nurse Practitioner Family; Visit Provider Internal Medicine | DX: I25.10 Atherosclerotic heart disease of native coronary artery without angina pectoris (principal); I10 Essential (primary) hypertension; E11.9 Type 2 diabetes mellitus without complications; R04.2 Hemoptysis; Z87.891 Personal history of nicotine dependence; Z79.4 Long term (current) use of insulin | CPT/HCPCS: 99214 ==

== ENCOUNTER → 2023-10-12 10:08 | Outpatient (BNVA) | payer MEDICARE, SELFPAY | PROVIDERS: PCP Nurse Practitioner Family; Visit Provider Nurse Practitioner Family | DX: I10 Essential (primary) hypertension (principal); I50.9 Heart failure, unspecified | CPT/HCPCS: 80053; 80061; 82043 ==